=== PATIENT | female | born 1935 | race Caucasian/White ===

== ENCOUNTER → 2017-12-16 | Outpatient (CLI) | payer MEDICARE, OTHER ==
--- NOTE | 2017-12-18 11:16 | MAM ---
EXAM DESCRIPTION: 3D Screening BILATERAL : Digital Mammography. CLINICAL HISTORY: 82 years Female SCREENING . No complaints. No family history breast cancer. Sister with ovarian cancer. Childbirth. Postmenopausal. Has taken HRT 5 or more years ago. Lifetime risk of developing breast cancer (Tyrer-Cuzick model) is 4.7 %. COMPARISON: Baseline study at this facility. No prior reports available. TECHNIQUE: Bilateral CC and MLO projection full-field images, Digital tomosynthesis mammographic technique. Bilateral digital 2-D full-field MLO images. CAD not utilized. FINDINGS: The breast parenchymal density pattern is: Scattered areas of fibroglandular density. No skin thickening or nipple retraction. Asymmetric tissue and focal asymmetry at the 1200 - 100 clock position of the middle third of the right breast. A nodular nodular density appears to be associated with microcalcifications at the 1200 clock position of the middle third of the right breast approximately 5 cm from the nipple. Bilateral solitary microcalcifications and coarse calcifications. Also bilateral vascular calcifications. Multiple bilateral nodular densities. Single group of microcalcifications in the left breast, 5 cm from the nipple at 1200 clock position. IMPRESSION: BI-RADS CATEGORY: 0 - INCOMPLETE- Need additional imaging evaluation. FOLLOW-UP: Recall for additional imaging: Bilateral spot magnification. Tomosynthesis spot compression right breast. Targeted right breast ultrasound if indicated by diagnostic images.. Written communication concerning the IMPRESSION and Follow-up, will be mailed to the patient and referring health care provider. Electronically signed by: Kavin Langford MD 12/18/2017 11:15 AM CDT
== END ==
LOC: MAMMO 11:14
PROVIDERS: ATTEND General Practice
DX: Z12.31 Encounter for screening mammogram for malignant neoplasm of breast (principal)